=== PATIENT | male | born 1995 | race African-American/Black ===

== ENCOUNTER 2019-07-10 07:56 | Emergency (ER) | payer OTHER ==
[2019-07-10] MEDS ORDERED: BUFFERED LIDOCAINE 10 ML SYRINGE SUBQ STA (08:31)
--- NOTE | 2019-07-10 09:15 | ED Physician Documentation ---
PD HPI HEAD INJURY - Stated complaint Stated Complaint: LIP CUT - Chief complaint Chief Complaint: Laceration - History obtained from History obtained from: Patient - History of Present Illness Mechanism of head injury: Fell Where head injury occurred: Work Timing - onset: Today Location of injury: Front Quality of pain: Pain Associated symptoms: Other (syncope). No: AMS, Amnesia, Nausea / vomiting, Neck pain, Paresthesias, Seizures, Ear drainage, Nasal drainage Symptoms improve with: Rest Symptoms worsen with: Palpation, Movement Contributing factors: No: Anticoagulated Similar symptoms before: Has not had sx before Recently seen: Not recently seen - Additional information Additional information: 24-year-old [place] bench when he stood up too quickly became lightheaded and collapsed falling forward landing on his face lacerating his right lower lip. He denies any pain in his neck he states that he feels entirely normal now and he acknowledges multiple times previously with trying to stand up too quickly getting lightheaded. He has not had syncope previously. He has no other specific history. Review of Systems Constitutional: denies: Fever, Chills, Myalgias, Fatigue Eyes: denies: Decreased vision Ears: denies: Ear pain Nose: denies: Rhinorrhea / runny nose, Congestion Throat: denies: Sore throat Cardiac: denies: Chest pain / pressure, Palpitations Respiratory: denies: Dyspnea, Cough GI: denies: Abdominal Pain, Nausea, Vomiting : denies: Dysuria, Frequency Skin: denies: Rash Musculoskeletal: denies: Neck pain, Back pain, Extremity pain Neurologic: reports: Syncope, Head injury. denies: Generalized weakness, Focal weakness, Numbness, Seizure, Confused, Altered mental status, Headache PD PAST MEDICAL HISTORY - Past Medical History Past Medical History: Yes Psych: Anxiety - Past Surgical History Past Surgical History: No - Present Medications Home Medications: Ambulatory Orders Medication Instructions Recorded Confirmed PARoxetine [Paxil] 10 mg PO DAILY 07/10/19 07/10/19 - Allergies Allergies/Adverse Reactions: Allergies Allergy/AdvReac Type Severity Reaction Status Date / Time No Known Drug Allergies Allergy Verified 07/10/19 08:05 - Social History Does the pt smoke?: No Smoking Status: Never smoker Does the pt drink ETOH?: No Does the pt have substance abuse?: No - Immunizations Immunizations are current?: Yes - POLST Patient has POLST: No PD ED PE NORMAL - Vitals Vital signs reviewed: Yes (normal ) - General General: Alert and oriented X 3, No acute distress, Well developed/nourished - HEENT HEENT: PERRL, EOMI, Other (there is a 3cm laceration to the right lower lip. A burst laceration along the vermilion border. 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, No motor deficit, No sensory deficit, Normal speech Eye Opening: Spontaneous Motor: Obeys Commands Verbal: Oriented GCS Score: 15 - Psych Psych: Normal mood, Normal affect Results - Vitals Vitals: Vital Signs - 24 hr 07/10/19 08:03 Temperature 36.8 C Heart Rate 80 Respiratory 16 Rate Blood Pressure 108/80 O2 Saturation 100 Oxygen O2 Source Room air Procedures - Laceration (location) lower lip Length in cm: 3 Wound type: Irregular, Clean Neurovascular status: Sensory intact, Motor intact, Vascular intact Anesthesia: Lidocaine 1%, With bicarb Wound Preparation: Hibiclens, Irrigated copiously NS, Wound explored, To the base Skin layer closure: Nylon, Interrupted, Size #-0 - enter number ([id number]) Other: Patient tolerated well, No complications, Neurovascular intact, Dressing applied, Tetanus UTD Complexity: Intermediate PD MEDICAL DECISION MAKING - ED course Complexity details: considered differential, d/w patient ED course: 24-year-old male with a laceration through vermilion border on the right lower lip has had a syncopal episode today from standing up too quickly. He otherwise has no specific physical exam findings to suggest current illness. He has no neck pain. He has no nausea dizziness difficulty concentrating. His lower lip is sutured he is up-to-date on his tetanus. Departure - Departure Disposition: 01 Home, Self Care Clinical Impression: Syncope and collapse Lip laceration Qualifiers: Encounter type: initial encounter Qualified Code(s): S01.511A - Laceration without foreign body of lip, initial encounter Condition: Stable Instructions: ED Syncope Vasovagal, ED Laceration Facial Sutr Tape Follow-Up: Yohana Osborne ARNP [Primary Care Provider] - Comments: Sutures will need to be removed in 5 days
[2019-07-10 09:27] VITALS: BP 127/83
== END 2019-07-10 09:27 | disposition home or self-care (01) ==
LOC: ED 07:56
DX: R55 Syncope and collapse (principal); S01.511A Laceration without foreign body of lip, initial encounter; W18.39XA Other fall on same level, initial encounter; Y93.89 Activity, other specified; Y92.89 Other specified places as the place of occurrence of the external cause; Y99.0 Civilian activity done for income or pay
CPT/HCPCS: 12052